=== PATIENT | male | born 1960 | race Two or more races ===

== ENCOUNTER 2021-07-12 14:07 | Emergency (ER) | payer OTHER ==
[~2021-07-12] VITALS: Ht 177.8 cm; Wt 99.8 kg
[2021-07-12] MEDS ORDERED: AVAPRO150 MG PO (14:31)
[2021-07-12] MEDS ORDERED: NIFEDIPINE20 MG PO (14:31)
== END 2021-07-12 20:11 | disposition home or self-care (01) ==
LOC: ER 14:07
DX: S60.042A Contusion of left ring finger without damage to nail, initial encounter (principal); S50.12XA Contusion of left forearm, initial encounter; S60.222A Contusion of left hand, initial encounter; V43.52XA Car driver injured in collision with other type car in traffic accident, initial encounter; Y93.89 Activity, other specified; Y92.488 Other paved roadways as the place of occurrence of the external cause; Y99.8 Other external cause status